=== PATIENT | female | born 1945 | race Caucasian/White ===

== ENCOUNTER 2017-12-24 18:40 | Emergency (ER) | payer OTHER ==
--- NOTE | 2017-12-24 19:18 | PDOC ---
History of Present Illness - History of Present Illness Initial Comments: 12/24/17 19:38 HPI: The patient is a 72 year old female, with no significant past medical history, who presents to the emergency department with, s/p mechanical fall with left arm pain. As per patient, she was unloading her groceries when the cart began to roll away. She began to go after the cart and tripped over her feet onto her left shoulder and hand. She reports the pain in her left arm to worsen when elevating her arm. She denies hitting her head. She denies any loss of consciousness. She denies recent fevers, chills, headache or dizziness. She denies recent nausea, vomit, diarrhea or constipation. She denies recent dysuria, frequency, urgency or hematuria. She denies recent chest pain or shortness of breath. PAST MEDICAL HISTORY: no significant history PAST SURGICAL HISTORY: no significant history FAMILY HISTORY: no pertinent history SOCIAL HISTORY: Pt lives with family. MEDICATIONS: reviewed ALLERGIES: As per nursing notes ROS: General: No fevers or chills, no weakness, no weight loss HEENT: No change in vision. No sore throat,. No ear pain CardioVascular: No chest pain or shortness of breath Respiratory:No cough, or wheezing. Gastrointestinal: no nausea, vomiting, diarrhea or constipation, No rectal bleeding Genitourinary: No dysuria, hematuria, or frequency +Musculoskeletal: Left arm pain. No joint swelling Neurologic: No headache, vertigo, dizziness or loss of consciousness Psychiatric: nor depression Skin: No rashes or easy bruising Endocrine: no increased thirst or abnormal weight change Allergic: no skin or latex allergy All other systems reviewed and normal Physical Exam: GENERAL: The patient is awake, alert, and fully oriented, in no acute distress. HEAD: Normal with no signs of trauma. EYES: Pupils equal, round and reactive to light, extraocular movements intact, sclera anicteric, conjunctiva clear. EXTREMITIES: Tenderness on palpation to the proximal humerus of the left upper extremity. No bony tenderness. Decreased range of motion secondary to pain. No obvious deformity. Neurovascularly intact. No edema. NEUROLOGICAL: Normal speech, normal gait. PSYCH: Normal mood, normal affect. SKIN: Warm, Dry, normal turgor, no rashes or lesions noted. <Valencia Saeed - Last Filed: 12/24/17 19:38> - General History Source: Patient Exam Limitations: No Limitations - History of Present Illness Initial Comments: 12/24/17 19:37 A portion of this note was documented by scribe services under my direction. I have reviewed the details of the note, within reason, and agree with the documentation. The case summary and management plan written by me. X-ray: Assessment and plan: This is 72-year-old female who was shopping at [employer] when she tripped over her feet fell landing right on her left shoulder. Patient said she did not hit her head did not pass out denies any neurological complaints. Patient is complaining of left upper arm/shoulder pain 12/24/17 21:08 21:45 Moderate sedation was given and the left shoulder was reduced using traction countertraction. Post reduction x-ray shows good reduction of the dislocation. There is no fracture of the humeral head or anesthesia over the deltoid Patient discharged home with a sling and given orthopedic follow-up <Juan Carlos Tidwell I - Last Filed: 12/24/17 21:17> - General Chief Complaint: Injury Stated Complaint: LEFT SHOULDER PAIN Time Seen by Provider: 12/24/17 19:12 Past History <Valencia Saeed - Last Filed: 12/24/17 19:38> <Juan Carlos Tidwell I - Last Filed: 12/24/17 21:17> - Past Medical History Allergies/Adverse Reactions: Allergies Allergy/AdvReac Type Severity Reaction Status Date / Time No Known Allergies Allergy Verified 12/24/17 18:57 Home Medications: Ambulatory Orders Aspirin Coated [Ecotrin -] 325 mg PO DAILY 12/24/17 Atorvastatin Ca 12/24/17 Clopidogrel Bisulfate [Plavix -] 75 mg PO DAILY 12/24/17 Coreg 12/24/17 Exenatide Microspheres [Bydureon] 2 mg SQ Q7D 12/24/17 Gemfibrozil [Lopid] 600 mg PO DAILY 12/24/17 Hydrochlorothiazide 25 mg PO DAILY 12/24/17 Lisinopril BID 12/24/17 Metformin HCl 850 mg PO TID 12/24/17 *Physical Exam - Vital Signs Last Vital Signs Temp Pulse Resp BP Pulse Ox 97.7 F 80 16 149/89 96 12/24/17 18:55 12/24/17 18:55 12/24/17 18:55 12/24/17 18:55 12/24/17 18:55 <Valencia Saeed - Last Filed: 12/24/17 19:38> Moderate Sedation - Pre-Procedure Assessment Joint Reduction Is this a Moderate (Conscious) sedation patient?: Yes Med/Surg Hx & PE performed: Yes Vital Signs: Vital Signs Temp Pulse Resp BP Pulse Ox 97.7 F 73 14 155/90 96 12/24/17 18:55 12/24/17 20:31 12/24/17 20:31 12/24/17 20:31 12/24/17 20:31 Does the patient have a history of Obstructive Sleep Apnea: No Prior complications with sedation/analgesia: No NPO since (date): 12/24/17 NPO since (time): 13:00 Mallampati Score: II ASA Physical Status: Class II Consent obtained: Written, From Patient Time out called (time): 19:47 Items checked for time out procedure: All work stopped (with some bacitracin and then restart that), Patient identified using 2 identifiers, Procedure to be performed verified & agreed, Allergies noted, Consent read, ED physician/[employer]PERATOR/PA/ Resident identified, Patient position verified, All active procedure participants present from the beginning Sedation agent: Propofol - Procedure Monitoring Vital Signs: see nursing notes for vital signs - Post Procedure Assessment Tolerated procedure well: Yes Complications [comment]: none Was a reversal agent used?: No Patient evaluation: Awake, alert and oriented, Vital signs reviewed, Cardiopulmonary exam normal, Pain controlled Printed Discharge Instructions given: Yes <Juan Carlos Tidwell I - Last Filed: 12/24/17 21:17> *DC/Admit/Observation/Transfer - Attestations Scribe Attestion: 12/24/17 19:38 Documentation prepared by Valencia Saeed, acting as medical office receptionist for Juan Carlos Tidwell MD. <Valencia Saeed - Last Filed: 12/24/17 19:38> - Discharge Dispostion Decision to Admit order: No <Juan Carlos Tidwell I - Last Filed: 12/24/17 21:17> Diagnosis at time of Disposition: Dislocation of left shoulder joint Qualifiers: Encounter type: initial encounter Qualified Code(s): S43.005A - Unspecified dislocation of left shoulder joint, initial encounter - Discharge Dispostion Condition at time of disposition: Good - Patient Instructions Printed Discharge Instructions: DI for Moderate Sedation Additional Instructions: for the pain you can take for the pain you can take ibuprofen or Tylenol as directed on the bottle. If you take ibuprofen don't take them on an empty stomach take it with food Wear the sling until you see the orthopedist. Follow-up with an orthopedist this week or early next week if you need an orthopedist call Dr. Wick at [phone] in the morning for an appointment. Return to the emergency department immediately with ANY new, persistent or worsening symptoms. Continue any medications as previously prescribed by your physician. You should follow up with your primary doctor as soon as possible regarding today's emergency department visit. . Please make sure your doctor reviews the results of your emergency evaluation. Thank you for coming to the Emergency Department today for your care. It was a pleasure to see you today. Please note that your evaluation is INCOMPLETE until you follow-up with your doctor.
[2017-12-24] MEDS ORDERED: MAG HYDROX/AL HYDROX/SIMETH 30 ML UNIT-DOSE CUP PO ONE (19:19)
[2017-12-24] MEDS ORDERED: IBUPROFEN 600 MG TABLET (FP) PO ONE ×2 (19:19→19:36)
[2017-12-24 19:25] VITALS: TEMP 97.7; BMI 28.8
[2017-12-24] MEDS ORDERED: MAG HYDROX/AL HYDROX/SIMETH 30 ML UNIT-DOSE CUP ONE (19:36)
[2017-12-24 20:32] VITALS: BP 155/90; PULSE 73
[2017-12-24] MEDS ORDERED: PROPOFOL 20 ML ONE (20:37)
== END 2017-12-24 21:58 | disposition home or self-care (01) ==
LOC: FER 18:40
PROC: 0RSKXZZ Reposition Left Shoulder Joint, External Approach (ICD-10-PCS; principal; 2017-12-24)
DX: S43.005A Unspecified dislocation of left shoulder joint, initial encounter (principal); W18.39XA Other fall on same level, initial encounter; Y93.89 Activity, other specified; Y92.512 Supermarket, store or market as the place of occurrence of the external cause
CPT/HCPCS: 73030-TC-LT-FY; 73060-TC-LT-FY; 99282-25